=== PATIENT | female | born 1960 | race Two or more races ===

== ENCOUNTER 2021-09-26 05:35 | Day surgery (SDC) | payer OTHER ==
[~2021-09-26 05:35] MED LIST: ATACAND HCT 321 EAC1 PO; LIPITOR PO; SYNTHROID125 MCG PO; SYNTHROID150 MCG PO
== END 2021-09-26 12:10 | disposition home or self-care (01) ==
LOC: CIR.AMB 05:35
PROVIDERS: ATTEND Orthopaedic Surgery Hand Surgery
DX: G56.01 Carpal tunnel syndrome, right upper limb (principal); Z20.822 Contact with and (suspected) exposure to COVID-19